=== PATIENT | female | born 1990 | race Caucasian/White ===

== ENCOUNTER 2017-10-14 01:21 | Emergency (ER) | payer SELFPAY ==
[~2017-10-14] VITALS: Ht 165.1 cm; Wt 50.0 kg
[2017-10-14 01:22] VITALS: BP 108/75
[2017-10-14 02:03] LABS: DAU SCREEN DISCLAIMER; HCG UR LOT HCG7030192
[2017-10-14 02:18] LABS: HCG UR OBC PASS
[2017-10-14] MEDS ORDERED: LIDOCAINE 1%, 20ML ONE ×2 (02:47→02:50)
[2017-10-14] MEDS ORDERED: LIDOCAINE 1%, 20ML SQ ONE (03:00)
== END 2017-10-14 04:00 | disposition home or self-care (01) ==
LOC: ED 03:43
DX: K59.00 Constipation, unspecified (principal); L73.9 Follicular disorder, unspecified; F15.10 Other stimulant abuse, uncomplicated; F11.10 Opioid abuse, uncomplicated; E03.9 Hypothyroidism, unspecified
CPT/HCPCS: 10060; 74020; 80307; 81003; 81025; 99285; G0479

== ENCOUNTER 2019-11-27 04:21 | Emergency (ER) | payer MEDICAID ==
[~2019-11-27] VITALS: Ht 165.1 cm; Wt 54.9 kg
[~2019-11-27 04:21] MED LIST: LEVO25TA4 PO
[2019-11-27 04:24] VITALS: BP 107/50
[2019-11-27 05:31] LABS: BASOPHILS # (AUTO) 0.03 x10^3/uL (0-0.1); BASOPHILS % (AUTO) 1 % (0-1); EOSINOPHILS % (AUTO) 2 % (1-7); LYMPHOCYTES # (AUTO) 1.71 x10^3/uL (1-3.4); LYMPHOCYTES % (AUTO) 29 % (22-44); MD NO; MEAN CORPUSCULAR HEMOGLOBIN 30.7 pg (27.0-34.8); MEAN CORPUSCULAR HGB CONC 33.8 g/dL (32.4-35.8); MEAN CORPUSCULAR VOLUME 90.8 fL (80-100); MEAN PLATELET VOLUME 8.7 fL (7.4-10.4); MONOCYTES # (AUTO) 0.48 x10^3/uL (0.2-0.8); MONOCYTES % (AUTO) 8 % (2-9); NEUTROPHILS # (AUTO) 3.62 x10^3/uL (1.8-6.8); NEUTROPHILS % (AUTO) 61 % (42-75); PLATELET COUNT 208 x10^3/uL (130-400); RED BLOOD COUNT 4.64 x10^6/uL (3.82-5.3); RED CELL DISTRIBUTION WIDTH 12.3 % (9.6-15.2)
[2019-11-27 05:34] LABS: ALANINE AMINOTRANSFERASE 25 U/L (12-78); ALBUMIN 4.1 g/dL (3.4-5.0); ANION GAP 5 mmol/L (5-15); CALCIUM 8.8 mg/dL (8.5-10.1); CHLORIDE 108 mmol/L (98-107); CREATININE 0.88 mg/dL (0.55-1.02); SALICYLATE LEVEL 2.3 mg/dL (2.8-20.0)
[2019-11-27 05:36] LABS: ALKALINE PHOSPHATASE 64 U/L (45-117); BILIRUBIN,TOTAL 0.3 mg/dL (0.2-1.0); TOTAL PROTEIN 7.2 g/dL (6.4-8.2)
[2019-11-27 06:17] LABS: AMPHETAMINE SCREEN, URINE Negative (Negative); BARBITURATE SCREEN, URINE Negative (Negative); BENZODIAZEPINE SCREEN, URINE Negative (Negative); CANNABINOID SCREEN, URINE Negative (Negative); COCAINE SCREEN, URINE Negative (Negative); METHADONE SCREEN, URINE Negative (Negative); OPIATE SCREEN, URINE Negative (Negative)
== END 2019-11-27 05:58 | disposition home or self-care (01) ==
LOC: ED 05:15
DX: R40.0 Somnolence (principal); T39.315A Adverse effect of propionic acid derivatives, initial encounter; E03.9 Hypothyroidism, unspecified; Y92.89 Other specified places as the place of occurrence of the external cause
CPT/HCPCS: 36415; 80053; 80307; 85025; 99283

== ENCOUNTER 2020-06-17 11:04 | Emergency (ER) | payer MEDICAID ==
[~2020-06-17] VITALS: Ht 165.1 cm; Wt 50.6 kg
--- NOTE | 2020-06-17 11:26 | NUR ---
PT AMBULATED TO RESTROOM WITH STEADY GAIT TO PROVIDE URINE SAMPLE. UA ORDERED PER PROTOCOL AND TAKEN TO LAB.
[2020-06-17 11:31] LABS: MICROSCOPIC INDICATED
[2020-06-17 11:50] LABS: BASOPHILS # (AUTO) 0.04 x10^3/uL (0-0.1); BASOPHILS % (AUTO) 1 % (0-1); EOSINOPHILS # (AUTO) 0.11 x10^3/uL (0-0.4); EOSINOPHILS % (AUTO) 2 % (1-7); LYMPHOCYTES # (AUTO) 2.37 x10^3/uL (1-3.4); LYMPHOCYTES % (AUTO) 33 % (22-44); MD NO; MEAN CORPUSCULAR HEMOGLOBIN 31.1 pg (27.0-34.8); MEAN CORPUSCULAR HGB CONC 33.9 g/dL (32.4-35.8); MEAN CORPUSCULAR VOLUME 91.8 fL (80-100); MEAN PLATELET VOLUME 8.8 fL (7.4-10.4); MONOCYTES # (AUTO) 0.67 x10^3/uL (0.2-0.8); MONOCYTES % (AUTO) 9 % (2-9); NEUTROPHILS # (AUTO) 4.08 x10^3/uL (1.8-6.8); NEUTROPHILS % (AUTO) 56 % (42-75); PLATELET COUNT 221 x10^3/uL (130-400); RED BLOOD COUNT 4.81 x10^6/uL (3.82-5.3)
[2020-06-17] MEDS ORDERED: KETOROLAC 60 MG/2 ML ONE (11:57)
[2020-06-17 12:00] LABS: ALANINE AMINOTRANSFERASE 14 U/L (12-78); ALBUMIN 4.3 g/dL (3.4-5.0); ANION GAP 4 mmol/L (5-15); CALCIUM 9.2 mg/dL (8.5-10.1); CHLORIDE 109 mmol/L (98-107); CREATININE 0.98 mg/dL (0.55-1.02)
[2020-06-17] MEDS ORDERED: KETOROLAC 30 MG/1 ML IM ONE (12:00)
--- NOTE | 2020-06-17 12:01 | NUR ---
LIBRARY SUPERVISOR PER MAR.
[2020-06-17 12:04] LABS: ALKALINE PHOSPHATASE 59 U/L (45-117); BILIRUBIN,TOTAL 0.6 mg/dL (0.2-1.0); TOTAL PROTEIN 7.6 g/dL (6.4-8.2)
--- NOTE | 2020-06-17 12:09 | NUR ---
ALL RESULTS ARE BACK AT THIS TIME. CHART UP FOR RECHECK.
--- NOTE | 2020-06-17 12:17 | NUR ---
RECEIVED NEW ORDER FOR CT. PT MADE AWARE.
--- NOTE | 2020-06-17 12:52 | NUR ---
ALL RESULTS ARE BACK AT THIS TIME. CHART UP FOR RECHECK.
[2020-06-17 12:54] VITALS: BP 98/58
--- NOTE | 2020-06-17 13:10 | NUR ---
PT REFUSED CATH UA, DESPITE EDUCATION FROM AND THIS RN. PT PROVIDING ANOTHER CLEAN CATCH WITH BETTER CLEANING THAN THE PRIOR SPECIMIN. AWARE.
[2020-06-17 13:28] LABS: MICROSCOPIC INDICATED
--- NOTE | 2020-06-17 13:38 | NUR ---
ALL RESULTS ARE BACK AT THIS TIME. CHART UP FOR RECHECK.
--- NOTE | 2020-06-17 14:19 | NUR ---
PROVIDER AT BEDSIDE TO UPDATE PT ON POC.
== END 2020-06-17 14:28 | disposition home or self-care (01) ==
LOC: ED 12:08
DX: N20.0 Calculus of kidney (principal); R10.84 Generalized abdominal pain; R30.0 Dysuria; R31.9 Hematuria, unspecified
CPT/HCPCS: 36415; 74176; 80053; 81001; 84703; 85025; 87086; 96372; 99284; J1885